=== PATIENT | female | born 1990 | race Caucasian/White ===

== ENCOUNTER → 2021-06-19 | Outpatient (CLI) | payer BC | LOC: DIA.ED 07:31 | DX: O24.419 Gestational diabetes mellitus in pregnancy, unspecified control (principal); I10 Essential (primary) hypertension | CPT/HCPCS: G0108 ==

== ENCOUNTER → 2021-06-28 | Outpatient (CLI) | payer BC | LOC: DIA.ED 07:49 | DX: O24.419 Gestational diabetes mellitus in pregnancy, unspecified control (principal); Z79.4 Long term (current) use of insulin; I10 Essential (primary) hypertension | CPT/HCPCS: G0108 ==

== ENCOUNTER → 2021-07-19 | Outpatient (CLI) | payer BC | LOC: DIA.ED 09:36 | DX: O24.419 Gestational diabetes mellitus in pregnancy, unspecified control (principal); Z79.4 Long term (current) use of insulin; I10 Essential (primary) hypertension | CPT/HCPCS: G0108 ==

== ENCOUNTER → 2021-08-21 | Outpatient (CLI) | payer BC | LOC: DIA.ED 10:29 | DX: O24.419 Gestational diabetes mellitus in pregnancy, unspecified control (principal); Z79.4 Long term (current) use of insulin; I10 Essential (primary) hypertension | CPT/HCPCS: G0108 ==

== ENCOUNTER 2021-12-22 15:23 | Inpatient (IN) | payer BC ==
[~2021-12-22] VITALS: Ht 160 cm; Wt 110.0 kg
--- NOTE | 2021-12-26 23:50 | NUR ---
2350- PATIENT AND SPOUSE TO UNIT. ORIENTATED TO ROOM AND CHANGED INTO CLEAN GOWN. PATIENT REPORTS A BIG POP AND GUSH OF FLUID AROUND 2230 WHILE ON THE TOILET. REPORTS GMF, OCCASIONAL CONTRACTIONS AND NO BLEEDING CONCERNS. 2357- EFM AND TOCO ON AND TRACING. VITALS TAKEN, ASSESSMENT COMPLETED. PLAN OF CARE DISCUSSED. 0005- SVE /-2 WITH POSITIVE AMNIO TRACE. 0020- PROVIDER NOTIFIED DUE TO BEING ON THE UNIT, SEE PHYISICIAN NOTIFICATION. 0040- CONSENTS SIGNED 0050- IV STARTED IN LEFT HAND.
[2021-12-27] VITALS (60 sets, daily range): BP systolic 114–198; BP diastolic 60–104; PULSE 54–89; TEMP 97.4–98.3
--- NOTE | 2021-12-27 00:40 | NUR ---
0040- PATIENT CHECKED OWN BLOOD SUGAR WITH PERSONAL MACHINE. BS WAS 108. PHYSICIAN NOTIFIED.
[2021-12-27 01:12] LABS: COLLECTION METHOD CLEAN CATCH
[2021-12-27 01:16] LABS: BASO % 0.4 % (0.0-2.0); EOS # 0.1 K/mm3 (0.0-0.7); EOS % 0.7 % (0.0-4.0); GRAN % 69.8 % (42.2-75.2); HEMATOCRIT 38.6 % (37.0-47.0); LYMPH # 2.4 K/mm3 (1.2-3.4); LYMPH % 24.1 % (20.0-51.0); MEAN CELL VOLUME 82 fl (80.0-100.0); MEAN CORPUSCULAR HEMOGLOBIN 28 pg (27-31); MEAN CORPUSCULAR HGB CONC 34 g/dl (33.0-37.0); MEAN PLATELET VOLUME 11.7 fl (7.4-10.4); MONO # 0.5 K/mm3 (0.1-0.6); MONO % 4.6 % (1.7-9.3); PLATELET COUNT 210 K/mm3 (130-400); RED BLOOD COUNT 4.69 M/mm3 (4.10-5.30); REDCELL DISTRIBUTION WIDTH-CV 16.5 % (11.5-14.5)
[2021-12-27 01:20] LABS: PH 5 (5-8); URINE APPEARANCE Hazy (CLEAR/HAZY); URINE BACTERIA None Seen /hpf (NONE SEEN); URINE BILIRUBIN Negative (NEGATIVE); URINE BLOOD 2+ (NEGATIVE); URINE COLOR Yellow (YELLOW); URINE GLUCOSE Negative (NEGATIVE); URINE KETONE Negative (NEGATIVE); URINE LEUKOCYTE ESTERASE Negative (NEGATIVE); URINE NITRATE Negative (NEGATIVE); URINE PROTEIN(semi-quant) Negative (NEGATIVE); URINE UROBILINOGEN Negative (NEGATIVE)
[2021-12-27] MEDS ORDERED: PRENATAL TABLET PO (01:24)
[2021-12-27] MEDS ORDERED: ZOLOFT 100MG100 MG PO (01:24)
[2021-12-27] MEDS ORDERED: OSCAL 500 TAB500 MG PO (01:24)
[2021-12-27] MEDS ORDERED: LEVEMIR FLEX100 U/ML SQ (01:25)
[2021-12-27 01:38] LABS: ALBUMIN 2.6 gm/dL (3.5-5.0); BILIRUBIN,TOTAL 0.2 mg/dL (0.2-1.2); CALCIUM 10.4 mg/dL (8.4-10.2); CREATININE, serum 0.8 mg/dL (0.57-1.11); POTASSIUM 4.2 mmol/L (3.5-4.5); TOTAL PROTEIN 6.9 gm/dL (6.2-8.1)
--- NOTE | 2021-12-27 02:30 | NUR ---
0230- PATIENT CHECKED BS AND IT WAS 91.
--- NOTE | 2021-12-27 04:30 | NUR ---
0430- THIS RN TO BEDSIDE FOR SVE. /-2. DISCUSSED PITOCIN PLAN FOR THE MORNING. 0435- PATIENT CHECKED BS AND IT WAS 89. DISCUSSED WALKING AROUND TO STRETCH AND EAT SOMETHING LIGHT BEFORE STARTING PITOCIN. 0438- PATIENT TAKEN OFF MONITORS. AMBULATING AROUND UNIT AND EATING LIGHT SNACK. PLANNING TO START PITOCIN BY 0515 THIS MORNING. DENIES FURTHER NEEDS. CALL LIGHT WITHIN REACH.
--- NOTE | 2021-12-27 06:30 | NUR ---
Report recieved, care assumed. Patient resting in bed with at side. Call light within reach.
--- NOTE | 2021-12-27 07:00 | NUR ---
Blood sugar with patient's glucometer 96. Patient more uncomfortable with contractions, breathing through them with frequent position changes. FHR difficult to monitor, this nurse remains at bedside adjusting EFM.
--- NOTE | 2021-12-27 08:00 | NUR ---
Roles on unit, updated on critical blood pressures, 10mg labetelol given per orders - see emar.
--- NOTE | 2021-12-27 08:10 | NUR ---
Patient positioned on right side. More uncomfortable with contractions and requesting epidural. COLLAR TURNER OPERATOR notified.
--- NOTE | 2021-12-27 08:33 | NUR ---
0825 TYRESE Martínez to room to place epidural. Patient sits upright on the side of the bed. EFM not tracing in this position due to maternal habitus. 0802 Single shot administed by TYRESE Martínez. See anesthesia record for details of procedure.
--- NOTE | 2021-12-27 09:00 | NUR ---
Blood sugar with patient's own glucometer 123.
--- NOTE | 2021-12-27 09:05 | NUR ---
Roles on unit, reviews FHR tracing, CTX pattern, and BPs. Orders to increase pitocin recieved and pitocin increased to 14mu per orders and protocol.
--- NOTE | 2021-12-27 09:35 | NUR ---
FHR with recurrent late decelerations down to 110-120 bpm with a spontaneous return to baseline of 130 bpm. SVE with scalp electrode placed. Patient turned to high left side with peanut ball between legs.
--- NOTE | 2021-12-27 10:40 | NUR ---
Unable to trace contractions with toco. FHR decelerations continue. Dr. Elizabeth called and updated.
--- NOTE | 2021-12-27 12:00 | NUR ---
Blood sugar on patient's own glucometer 89.
--- NOTE | 2021-12-27 12:15 | NUR ---
Dr. Elizabeth on unit, reviews EFM tracing. Dr. Elizabeth to room, SVE with IUPC placed. Cervix 6/100 with bloody show noted. Plan of care reviewed with patient. Patient positioned to right side with peanut ball between legs.
--- NOTE | 2021-12-27 13:30 | NUR ---
FHR deceleration down to 100bpm for 5 minutes with a gradual return to baseline of 130 bpm. During this time patient turned from high right side to high left side and then to emily position. IUPC falls out. SVE 8/100/0.
--- NOTE | 2021-12-27 16:34 | NUR ---
1624 Patient pushing with contractions. 1630 Dr. Elizabeth to room, patient prepped for delivery. 1634 Spontaneous vaginal delivery of viable female by Dr. Elizabeth. Cord clamped and cut and to the care of the nursery RN. 1638 Spontaneous delivery of placenta by Dr. Elizabeth. Pitocin infusing at 333ml/hr per orders and protocol. Fundus firm. Repair of 2nd degree perineal laceration by Dr. Elizabeth.
--- NOTE | 2021-12-27 19:40 | NUR ---
PATIENT TRANSFERRED FROM BED IN LABOR ROOM TO BATHROOM WITH STANDBY ASSIST. PATIENT ABLE TO VOID 300 ML OF YELLOW URINE. MESH UNDERWEAR, RANDAL-PAD, ICE PACK PROVIDED. LEGS CLEANED UP WITH WET WASHCLOTHS. NEW GOWN PROVIDED. PATIENT ABLE TO WALK FROM LABOR ROOM TO POST- ROOM. DENIES LIGHTHEADEDNESS OR DIZZINESS. PATIENT AND SIGNIFICANT OTHER ORIENTED TO ROOM. CALL LIGHT WITHIN REACH.
--- NOTE | 2021-12-27 21:35 | NUR ---
PATIENT CHECKED BLOOD GLUVOSE LEVEL IN PRESENCE OF THIS NURSE. RESULT IS 126.
[2021-12-28 00:10] VITALS: BP 155/92; PULSE 59; TEMP 97.5
[2021-12-28 03:30] VITALS: BP 135/95; PULSE 64; TEMP 97.8
--- NOTE | 2021-12-28 06:52 | NUR ---
REPORT RECEIVED FROM OFF GOING RN, CARE TAKEN OVER BY THIS RN.
[2021-12-28 08:42] VITALS: BP 145/70; PULSE 65; TEMP 98
[2021-12-28] MEDS ORDERED: IBU800 M1 PO (08:53)
--- NOTE | 2021-12-28 08:54 | NUR ---
AC BLOOD SUGAR 89
--- NOTE | 2021-12-28 09:38 | NUR ---
Initial visit; Patient thanked Electronic Court Recorder for visiting and offering congratulations and God's blessings for the of her daughter. Electronic Court Recorder thanked patient for choosing [facility]. Patient states she has had a good experience here.
--- NOTE | 2021-12-28 11:45 | NUR ---
2 HOURS POST MEAL BLOOD SUGAR 131
--- NOTE | 2021-12-28 15:30 | NUR ---
2 HOUR POST MEAL BLOOD GLUCOSE 115
[2021-12-28 16:29] VITALS: BP 156/85; PULSE 76; TEMP 97.9
[2021-12-28 20:15] VITALS: BP 131/72; PULSE 75; TEMP 97.7
--- NOTE | 2021-12-28 21:15 | NUR ---
PATIENT CHECKED HER OWN POST-PRANDIAL BLOOD GLUCOSE. PER PATIENT, RESULT WAS 131.
[2021-12-29 07:38] VITALS: BP 153/91; PULSE 67; TEMP 98
== END 2021-12-29 10:15 | disposition home or self-care (01) | DRG 805 ==
LOC: LDR 12-26 23:40 → OB 12-26 23:40 → LDR 12-27 15:22 → OB 12-27 19:40
PROVIDERS: Obstetrics & Gynecology; ADMIT Obstetrics & Gynecology
PROC: 10E0XZZ Delivery of Products of Conception, External Approach (ICD-10-PCS; principal; 2021-12-26)
PROC: 0KQM0ZZ Repair Perineum Muscle, Open Approach (ICD-10-PCS; 2021-12-26)
DX: O99.344 Other mental disorders complicating childbirth (principal); O24.12 Pre-existing type 2 diabetes mellitus, in childbirth; Z37.0 Single live birth; O10.92 Unspecified pre-existing hypertension complicating childbirth; E11.9 Type 2 diabetes mellitus without complications; O99.214 Obesity complicating childbirth; F32.A Depression, unspecified; O70.1 Second degree perineal laceration during delivery; O76 Abnormality in fetal heart rate and rhythm complicating labor and delivery; Z3A.39 39 weeks gestation of pregnancy
CPT/HCPCS: J2590; J2795; J7030

== ENCOUNTER 2022-03-03 09:22 | Inpatient (IN) | payer BC ==
[~2022-03-03] VITALS: Ht 160 cm; Wt 105.8 kg
[~2022-03-03 09:22] MED LIST: IBU800 M1 PO; LEVEMIR FLEX100 U/ML SQ; OSCAL 500 TAB500 MG PO; PRENATAL TABLET PO; ZOLOFT 100MG100 MG PO
[2022-03-03 09:51] LABS: BASO % 0.5 % (0.0-2.0); EOS % 0.1 % (0.0-4.0); GRAN # 6.1 K/mm3 (1.4-6.5); GRAN % 81.9 % (42.2-75.2); HEMATOCRIT 40.3 % (37.0-47.0); HEMOGLOBIN 13.3 g/dl (12.5-16.0); LYMPH # 0.7 K/mm3 (1.2-3.4); LYMPH % 9.6 % (20.0-51.0); MEAN CELL VOLUME 82 fl (80.0-100.0); MEAN CORPUSCULAR HEMOGLOBIN 27 pg (27-31); MEAN CORPUSCULAR HGB CONC 33 g/dl (33.0-37.0); MEAN PLATELET VOLUME 9.5 fl (7.4-10.4); MONO # 0.6 K/mm3 (0.1-0.6); MONO % 7.5 % (1.7-9.3); PLATELET COUNT 322 K/mm3 (130-400); REDCELL DISTRIBUTION WIDTH-CV 14.7 % (11.5-14.5)
[2022-03-03 10:00] LABS: COLLECTION METHOD CLEAN CATCH
[2022-03-03 10:07] LABS: PH 6 (5-8); SQUAMOUS EPITHELIAL 0-2 /hpf (0-10); URINE APPEARANCE Clear (CLEAR/HAZY); URINE BACTERIA Rare /hpf (NONE SEEN); URINE BLOOD Negative (NEGATIVE); URINE COLOR Yellow (YELLOW); URINE GLUCOSE Negative (NEGATIVE); URINE KETONE Negative (NEGATIVE); URINE NITRATE Negative (NEGATIVE); URINE PROTEIN(semi-quant) Negative (NEGATIVE); URINE RBC 0-2 /hpf (0-2); URINE UROBILINOGEN Negative (NEGATIVE)
[2022-03-03 10:23] LABS: ALBUMIN 3.5 gm/dL (3.5-5.0); BILIRUBIN,TOTAL 2.7 mg/dL (0.2-1.2); CALCIUM 9.5 mg/dL (8.4-10.2); CREATININE, serum 0.77 mg/dL (0.57-1.11); POTASSIUM 4.4 mmol/L (3.5-4.5); TOTAL PROTEIN 7.9 gm/dL (6.2-8.1)
[2022-03-03 13:43] VITALS: BP 111/67; PULSE 62; TEMP 98.6
[2022-03-03 15:52] VITALS: BP 114/54; PULSE 65; TEMP 98.1
[2022-03-03 17:39] VITALS: BP 102/85; PULSE 64; TEMP 97.9
[2022-03-03 20:06] VITALS: BP 112/65; PULSE 70; TEMP 98.5
[2022-03-03 23:31] VITALS: BP 121/56; PULSE 72; TEMP 98.8
[2022-03-04 03:47] VITALS: BP 113/57; PULSE 74; TEMP 98.7
[2022-03-04 06:00] LABS: BASO % 0.4 % (0.0-2.0); EOS # 0.1 K/mm3 (0.0-0.7); EOS % 1.5 % (0.0-4.0); GRAN # 3.1 K/mm3 (1.4-6.5); GRAN % 68.5 % (42.2-75.2); HEMATOCRIT 37.8 % (37.0-47.0); HEMOGLOBIN 11.8 g/dl (12.5-16.0); LYMPH % 21.6 % (20.0-51.0); MEAN CORPUSCULAR HEMOGLOBIN 27 pg (27-31); MEAN CORPUSCULAR HGB CONC 31 g/dl (33.0-37.0); MEAN PLATELET VOLUME 9.9 fl (7.4-10.4); MONO # 0.4 K/mm3 (0.1-0.6); MONO % 7.6 % (1.7-9.3); RED BLOOD COUNT 4.31 M/mm3 (4.10-5.30)
--- NOTE | 2022-03-04 06:00 | NUR ---
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 PT SITTING UP IN BED EATING HER CLEAR LIQUID DINNER. AFTER EATING, PT COMPLAINED OF ABD PAIN. HOSPITALIST CALLED. PT MADE NPO, AND MORPHINE ORDERED Q2HRS PRN. PT INFORMED, GIVEN ICE CHIPS PER REQUEST AND MORPHINE FOR PAIN. PT FELT MORPHINE WAS EFFECTIVE FOR HER PAIN. PT DENIED CHEST PAIN, PALPITATIONS, N,V,D, SOB OR DIZZINESS. PT SLEPT MOST OF THE SHIFT. PT EXPRESSED NO ADDITIONAL NEEDS AT THIS TIME. CALL LIGHT WITHIN REACH.
[2022-03-04 06:09] LABS: ALBUMIN 2.8 gm/dL (3.5-5.0); BILIRUBIN,TOTAL 0.8 mg/dL (0.2-1.2); CALCIUM 8.5 mg/dL (8.4-10.2); CHOLESTEROL RISK RATIO 5.5; CREATININE, serum 0.71 mg/dL (0.57-1.11); POTASSIUM 3.7 mmol/L (3.5-4.5); TOTAL PROTEIN 6.2 gm/dL (6.2-8.1)
[2022-03-04 06:28] LABS: MEAN CELL VOLUME 88 fl (80.0-100.0); PLATELET COUNT 218 K/mm3 (130-400)
[2022-03-04 06:44] LABS: BILIRUBIN,DIRECT 0.4 mg/dL (0.0-0.5)
[2022-03-04 07:17] VITALS: BP 134/71; PULSE 77; TEMP 99.3
--- NOTE | 2022-03-04 08:40 | NUR ---
PATIENT RESTING IN BED. STATES ABD PAIN MINIMAL, ATTRIBUTES THAT TO LACK OF ORAL INTAKE. TOOK MORNING MED WITH SIP OF WATER. C/O HEADACHE. WILL ASK PROVIDER FOR SOMETHING OTHER THAN IV MORPHINE FOR PAIN RELIEF. PATIENT INQUIRING ABOUT DISCHARGE AND OUTPATIENT US. ACTIVE BOWEL SOUNDS, NO URINARY COMPLAINTS. LR RUNNING AT 100MLS/HR.
[2022-03-04 10:58] VITALS: BP 129/67; PULSE 77; TEMP 98.3
--- NOTE | 2022-03-04 11:34 | NUR ---
Inventory Taker met with patient Kellen for intake assessment/discharge planning. Patient presents alert and oriented, and she is willing to discuss. She states, she lives in a two-story home with her spouse Tang and their baby, in [place]. There are no other dependents in the home. She states the home is accessible for her and she is independent in her ADLs/IADLs. She verbalizes awareness for /infant care services in the community, stating she does not believe they are eligible for [facility]. She informs she sees Dr. Joyce Rodriguez for primary care and obtains medications without difficulty at [facility] in [facility]. Patient does not have a DPOA-HC, but she is interested in receiving paperwork to review, and accepts paperwork given. She plans to discharge to home with her spouse and . She expresses no questions/concerns at this time. *Discharge plan: to home with spouse and child*
[2022-03-04 15:39] VITALS: BP 123/73; PULSE 71; TEMP 98.6
--- NOTE | 2022-03-04 16:32 | NUR ---
PATIENT RESTING IN ROOM TODAY. TOLERATING CLEAR LIQUIDS, WITH SMALL AMOUNTS OF UPPER QUAD TO EPIGASTRIC PAIN. C/O HEADACHE. TOLERATING PO MEDICATIONS. PATIENT INDEPENDENT IN THE ROOM. NO CONCERNS AT THIS TIME. PLAN FOR ABD US IN THE MORNING.
[2022-03-04 19:33] VITALS: BP 131/68; PULSE 75; TEMP 98.2
[2022-03-04 23:36] VITALS: BP 111/61; PULSE 62; TEMP 98.8
[2022-03-05 04:37] VITALS: BP 89/35; PULSE 51; TEMP 97.7
[2022-03-05 05:30] VITALS: BP 111/68
[2022-03-05 07:26] LABS: ALBUMIN 2.7 gm/dL (3.5-5.0); BILIRUBIN,TOTAL 0.4 mg/dL (0.2-1.2); CALCIUM 8.5 mg/dL (8.4-10.2); CREATININE, serum 0.65 mg/dL (0.57-1.11); MAGNESIUM 1.8 mg/dL (1.6-2.6); POTASSIUM 3.9 mmol/L (3.5-4.5); TOTAL PROTEIN 5.9 gm/dL (6.2-8.1)
[2022-03-05] MEDS ORDERED: ZOFRAN ODT4 MG PO (08:53)
[2022-03-05] MEDS ORDERED: ROXICODONE 55 MG/TAB PO (08:53)
[2022-03-05 09:00] VITALS: BP 117/59; PULSE 62; TEMP 98.2
--- NOTE | 2022-03-05 10:32 | NUR ---
Initial visit; Patient was very pleasant and thanked Technical Services Analyst for coming in to visit and wish her well and God's blessings. Technical Services Analyst let patient know she was blessed to meet her and thankful she is doing so well.
--- NOTE | 2022-03-05 11:30 | NUR ---
Scheduled medications given. Shift assessment preformed. VSS. Patient A&O. Fluids DC'd per orders. Patient denies any pain, discomfort, SOA, or further needs at this time. Call light in reach.
[2022-03-05] MEDS ORDERED: PROTONIX 40MG T40 MG PO (11:50)
[2022-03-05 12:00] VITALS: BP 143/86; PULSE 73
--- NOTE | 2022-03-05 13:47 | NUR ---
Patient deemed fit for disharge. IV dc'd, catheter intact, no signs of phlebitis. Discharge education/instructions given. All questions answered. Patient denies any pain, discomfort, SOA, or further needs a this time. VSS. Patient A&O. Patient ambulated from building escorted by via [facility] staff. transporting home.
== END 2022-03-05 13:49 | disposition home or self-care (01) | DRG 440 ==
LOC: COL.ER 09:22 → MEDICAL 12:55
PROVIDERS: Emergency Medicine; Internal Medicine; ADMIT Student in an Organized Health Care Education/Training Program
DX: K85.90 Acute pancreatitis without necrosis or infection, unspecified (principal); F32.A Depression, unspecified; K29.80 Duodenitis without bleeding; K80.70 Calculus of gallbladder and bile duct without cholecystitis without obstruction; F41.9 Anxiety disorder, unspecified; Y84.8 Other medical procedures as the cause of abnormal reaction of the patient, or of later complication, without mention of misadventure at the time of the procedure; T83.32XA Displacement of intrauterine contraceptive device, initial encounter; Z88.2 Allergy status to sulfonamides; Z87.440 Personal history of urinary (tract) infections; Z72.89 Other problems related to lifestyle; Y92.89 Other specified places as the place of occurrence of the external cause; Z23 Encounter for immunization
CPT/HCPCS: J1650; J1885; J2270; J2405; J7030; J7120; Q9967